=== PATIENT | female | born 1970 | race Caucasian/White ===

== ENCOUNTER 2018-03-31 09:12 | Emergency (ER) | payer OTHER ==
[2018-03-31] MEDS ORDERED: Ketorolac INJ* 60 MG/2 ML VIAL IM ONE (09:47)
[2018-03-31] MEDS ORDERED: Ondansetron ODT TAB* 4 MG PO ONE (09:48)
[2018-03-31 10:42] VITALS: BP 160/110
--- NOTE | 2018-03-31 10:50 | UC ---
Headache HPI - HPI Summary HPI Summary: sever headache x 1 woke up this morning with sever headaches and vomiting frontal headaches, no radiation + nausea , vomited at least 3 or 4 times no fever, no chills, no photophobia, no neck pain - History Of Current Complaint Chief Complaint: UCHeadache Stated Complaint: SEVERE HEADACHE, N/V Time Seen by Provider: 03/31/18 09:29 Hx Obtained From: Patient Hx Last Menstrual Period: 03/13/18 ?: No Onset/Duration: Sudden Onset, Lasting Days - 1, Still Present Onset Of Symptoms: Sudden Initially Headache Was: Severe Currently Pain Is: Current Pain Scale(0-10)= - 7 Pain Intensity: 7 Timing: Constant Character: Throbbing, Pressure Location of Headache: Frontal Aggravating Factor(s): Nothing Allevating Factor(s): Nothing Associated Signs And Symptoms: Positive: Nausea, Vomiting. Negative: Dizziness , Seizure, Sinus Pressure, Fever, Neck Pain, Neck Stiffness, Decreased LOC, Visual Changes, Other (Noted In Comments) - Allergies/Home Medications Allergies/Adverse Reactions: Allergies Allergy/AdvReac Type Severity Reaction Status Date / Time No Known Allergies Allergy Verified 03/31/18 09:37 Home Medications: Home Medications Ibuprofen TAB* [Advil TAB*] 400 mg PO ONCE PRN 03/31/18 [History Confirmed 03/31] PMH/Surg Hx/FS Hx/Imm Hx - Additional Past Medical History Additional PMH: lymphoma - Surgical History Surgical History: None - Family History Known Family History: Negative: Diabetes - Social History Alcohol Use: None Substance Use Type: None Smoking Status (MU): Never Smoked Tobacco Review of Systems Constitutional: Negative Skin: Negative Eyes: Negative ENT: Negative Respiratory: Negative Cardiovascular: Negative Gastrointestinal: Vomiting, Nausea Neurological: Headache Is Patient Immunocompromised?: No All Other Systems Reviewed And Are Negative: Yes Physical Exam Triage Information Reviewed: Yes Appearance: Well-Appearing, Pain Distress, Obese Vital Signs: Initial Vital Signs Temp 98.4 F 03/31/18 09:26 Pulse 86 03/31/18 09:26 Resp 16 03/31/18 09:26 BP 148/102 03/31/18 09:26 Pulse Ox 98 03/31/18 09:26 Vital Signs Reviewed: Yes Eyes: Positive: Conjunctiva Clear ENT: Positive: Normal ENT inspection, Hearing grossly normal, Pharynx normal Neck: Positive: Supple, Nontender, No Lymphadenopathy Respiratory: Positive: Chest non-tender, Lungs clear, Normal breath sounds Cardiovascular: Positive: RRR, No Murmur, Pulses Normal Abdominal Exam: Normal Abdomen Description: Positive: Nontender, Soft Bowel Sounds: Positive: Present Musculoskeletal Exam: Normal Neurological: Positive: Alert Skin Exam: Normal UC Physical Exam Vital Signs On Initial Exam: Initial Vitals Temp Pulse Resp BP Pulse Ox 98.4 F 86 16 148/102 98 03/31/18 09:26 03/31/18 09:26 03/31/18 09:26 03/31/18 09:03/31/18 09:26 - Neurological Exam Neurological: Normal, Sensory/Motor Intact, Alert, Oriented to Person Place, Time, CN Intact II-III, Normal Gait, Speech Normal Headache Course/Dx - Differential Dx/Diagnosis Provider Diagnoses: headaches. elevated blood pressure Discharge - Sign-Out/Discharge Documenting (check all that apply): Patient Departure - Discharge Plan Condition: Fair Disposition: TRANS HIGHER LVL OF CARE FAC Prescriptions: Ketorolac TAB * [Toradol TAB *] 10 mg PO Q6H PRN #12 tab PRN Reason: Pain Ondansetron [Zofran Odt] 8 mg PO Q8H PRN #9 tab.rapdis PRN Reason: Nausea/Vomiting Patient Education Materials: Acute Headache (ED) Referrals: Non Staff,Doctor [Primary Care Provider] - Additional Instructions: sever headache , vomiting , elevated blood pressure not improving with IM Toradol and PO Zofran please go to [facility] ED for further evaluation and tx - Billing Disposition and Condition Condition: FAIR Disposition: Trans Higher Lvl of Care Fac
== END 2018-03-31 10:51 | disposition short-term general hospital (02) ==
LOC: UCCORT 09:12
DX: R51 Headache (principal); R03.0 Elevated blood-pressure reading, without diagnosis of hypertension
CPT/HCPCS: 96372; 99202; A9270-GY; G0463; J1885